=== PATIENT | female | born 1990 | race American Indian/Alaskan Native ===

== ENCOUNTER 2017-06-30 08:00 | Emergency (ER) | payer BC ==
--- NOTE | 2017-06-30 10:53 | Emergency Department Report ---
HPI - General Chief Complaint: Urogenital-Female Time Seen by Provider: 06/30/17 09:40 - HPI HPI: Patient airport right breast pain that started this morning. She says she had vaginal delivery 2 weeks ago and is breast-feeding at present. She states her baby won't latch onto her right breast. Denies any pain and nipple but reports pain from [place] to other areas in her breast tissue. Denies any fever or chills. Denies any nausea or vomiting. Pain is 8 /10 and sharp. Patient said that she is pumping in and also that the baby's lasted onto her left breast. Denies any back pain. Denies any coughing. Denies any trauma. She says she had some engorgement in the right breast and then infection started this morning. Denies any abdominal pain. No medication taken for pain ED Past Medical Hx - Past Medical History Previous Medical History?: No - Surgical History Past Surgical History?: Yes Additional Surgical History: cyst removed from right leg - Family History Family history: no significant - Social History Smoking Status: Never Smoker Substance Use Type: None - Medications Home Medications: Home Medications Medication Instructions Recorded Confirmed Last Taken Type Clindamycin [Clindamycin CAP] 300 mg PO Q8H 10 Days #30 cap 06/30/17 Unknown Rx Ibuprofen [Motrin] 600 mg PO Q8H PRN #12 tablet 06/30/17 Unknown Rx ED Review of Systems ROS: Stated complaint: RIGHT BREAST PAIN Other details as noted in HPI Comment: All other systems reviewed and negative Constitutional: no symptoms reported Respiratory: no symptoms reported Cardiovascular: denies: chest pain, palpitations, edema, syncope Gastrointestinal: denies: abdominal pain, nausea, vomiting Genitourinary: other (right breast pain and swelling). denies: urgency, dysuria , frequency, hematuria, discharge Musculoskeletal: denies: back pain, joint swelling, arthralgia, myalgia Skin: denies: rash Neurological: denies: headache, numbness, abnormal gait Physical Exam - Physical Exam Vital Signs: Vital Signs 06/30/17 08:06 Temperature 98.3 F Pulse Rate 94 H Respiratory 18 Rate Blood Pressure 107/50 O2 Sat by Pulse 100 Oximetry General: This is a 27-year-old female well-nourished well-developed in no acute distress. Physical Exam: Head: Normocephalic, atraumatic, no abrasion, no bruising and no contusion. Eyes: Biateral pupils equal and reactive to light, bilateral EOM intact.. Bilateral conjunctival and sclera without injection, normal accommodation. Mouth: Mucosa moist, no pharyngeal exudate or erythema. No peritonsillar abscesses. Uvula is midline and oral airways patent. Neck: Supple, No Cervical adenopathy, full range of motion and no C-spine tenderness. No swelling or tracheal deviation normal reflexes Cardiovascular: S1, S2. Regular rate and rhythm. No murmur. Capillary refill is less then 3 seconds. Lungs: Clear to auscultate bilaterally. No rhonchi, wheezes or rales. No chest wall tenderness. No chest contusion. No bruising to chest. Breast EXAM: Left Breast exam breast normal exam. Right breast Skin has no dimpling or retraction, positive swelling with mild erythema and tender to palpate. No eczema area on breasts. Nipples are symmetric without retraction. No nipple discharge or crusting. No palpable mass bilateral breast . no adenopathy to regional lymph nodes to include, supraclavicular, infraclavicular and axillary area. Abdomen: Non-tender to palpate in all quadrants, no guarding or rebound tenderness, positive bowel sounds in all quadrants. No CVA tenderness. No hernia, bruit or mass. No rigidity or distention. Extremities: No clubbing, cyanosis or edema. +2 pulses. No neurovascular compromise Skin: Clean, dry and intact except for right breast with redness and tenderness. Please refer to breast exam per details. Psych: Normal mood and behavior ED Course Vital Signs 06/30/17 08:06 Temperature 98.3 F Pulse Rate 94 H Respiratory 18 Rate Blood Pressure 107/50 O2 Sat by Pulse 100 Oximetry - Reevaluation(s) Reevaluation #1: 06/30/17 12:09 Patient received clindamycin 600 mg IM and Motrin 800 mg by mouth for mastitis and breast pain. ED Medical Decision Making - Medical Decision Making ED course: Patient here with family and reported that she has right breast pain with swelling and redness that started this morning. She is currently breast- feeding with vaginal delivery 2 weeks ago. Physical finding for mastitis right breast. I discussed patient treatment plan prior to discharge with clindamycin IM and Motrin by mouth. Patient refused the first and called her UTILITY MAINTENANCE WORKER to ensure that it's okay for her to take clindamycin and she finally decided to take clindamycin per UTILITY MAINTENANCE WORKER guidance. I gave her patient education on mastitis from up-to-date. I also instructed her she is to follow-up with her UTILITY MAINTENANCE WORKER tomorrow and if she has worsening symptoms after 3 days of being on antibiotic or develops fever and increased redness or swelling with pus draining from right breast to return to emergency room and to call her UTILITY MAINTENANCE WORKER doctor. She was given clindamycin 600 mg IM without any adverse reaction and Motrin 800 mg by mouth. Patient discharged home from emergency room in stable condition with her friend with a prescription for Motrin and clindamycin Critical care attestation.: If time is entered above; I have spent that time in minutes in the direct care of this critically ill patient, excluding procedure time. ED Disposition Clinical Impression: Acute mastitis of right breast Disposition: DC-01 TO HOME OR SELFCARE Is pt being admited?: No Does the pt Need Aspirin: No Condition: Stable Instructions: Mastitis (ED), Breast Fullness Versus Breast Engorgement (ED), Your Baby (ED), and Nipple Soreness (ED), and Plugged Ducts (ED), How to Increase Your Milk Supply (ED), and Your Diet (ED), Breast Care for the Breast Feeding Mother (ED) Additional Instructions: Please take antibiotic as prescribed Please schedule an appointment today to see her UTILITY MAINTENANCE WORKER doctor tomorrow Follow discharge instructions on mastitis and also on breast-feeding Increase her fluid intake Take Motrin and this will decrease inflammation and pain. Prescriptions: Clindamycin [Clindamycin CAP] 300 mg PO Q8H 10 Days #30 cap Ibuprofen [Motrin] 600 mg PO Q8H PRN #12 tablet PRN Reason: Pain Referrals: PRIMARY CARE, [Primary Care Provider] - 2-3 Days follow-up with your, UTILITY MAINTENANCE WORKER doctor [Other] - 07/01/17 Forms: Accompanied Note
[2017-06-30] MEDS ORDERED: CLEOCIN IM ONE (11:00)
[2017-06-30] MEDS ORDERED: MOTRIN PO ONE (11:00)
[2017-06-30 12:40] VITALS: BP 116/69
== END 2017-06-30 12:40 | disposition home or self-care (01) ==
LOC: ED 08:00
DX: N61.0 Mastitis without abscess (principal)
CPT/HCPCS: 96372; 99282